=== PATIENT | male | born 1990 | race Caucasian/White ===

== ENCOUNTER 2020-03-20 09:30 | Emergency (ER) | payer OTHER, MEDICAID ==
[2020-03-20 09:43] VITALS: BP 136/76
[2020-03-20] MEDS ORDERED: NAPR-56 PO (10:07)
== END 2020-03-20 10:26 | disposition home or self-care (01) ==
LOC: ER 09:30
DX: S89.91XA Unspecified injury of right lower leg, initial encounter (principal); Z79.899 Other long term (current) drug therapy; Z72.89 Other problems related to lifestyle; V87.7XXA Person injured in collision between other specified motor vehicles (traffic), initial encounter; Y93.89 Activity, other specified; Y92.89 Other specified places as the place of occurrence of the external cause; Y99.8 Other external cause status
CPT/HCPCS: 99282

== ENCOUNTER 2020-03-30 09:10 | Emergency (ER) | payer MEDICAID, OTHER ==
[~2020-03-30] VITALS: Ht 180.3 cm; Wt 72.7 kg
[~2020-03-30 09:10] MED LIST: NAPR-56 PO
[2020-03-30 09:20] VITALS: BP 127/80
== END 2020-03-30 10:20 | disposition home or self-care (01) ==
LOC: ER 09:11
DX: M25.561 Pain in right knee (principal); Z79.899 Other long term (current) drug therapy
CPT/HCPCS: 99281